=== PATIENT | female | born 1940 | race Two or more races ===

== ENCOUNTER → 2024-05-08 07:03 | Outpatient (CLI) | payer OTHER | END | disposition home or self-care (01) | LOC: NUCLEAR 06:30 | PROVIDERS: ATTEND Urology | DX: M19.90 Unspecified osteoarthritis, unspecified site (principal) | CPT/HCPCS: 78306; A9503 ==

== ENCOUNTER 2024-05-13 09:27 | Outpatient (CLI) | payer OTHER | END 2024-05-13 09:29 | disposition home or self-care (01) | LOC: TOM 09:27 → EDSEX 09:27 → TOM 09:29 | PROVIDERS: ATTEND Urology | DX: C61 Malignant neoplasm of prostate (principal) | CPT/HCPCS: 74178; Q9965 ==